=== PATIENT | male | born 1950 | race American Indian/Alaskan Native ===

== ENCOUNTER 2017-11-09 08:34 | Emergency (ER) | payer MEDICARE, OTHER ==
[2017-11-09 08:35] VITALS: PULSE 70
[2017-11-09 08:45] VITALS: BMI 25.0
[2017-11-09 08:47] VITALS: RESP 14; TEMP 98.5; O2SAT 100
--- NOTE | 2017-11-09 08:50 | ED PDOC ---
Arrival/HPI - General Time Seen by Provider: 11/09/17 08:45 Historian: Patient - History of Present Illness Narrative History of Present Illness (Text): 11/09/17 08:40 67 year old male, whose PMH includes gout, CABG, CHF, pacemaker, atrial fibrillation, and pacemaker, who presents to the emergency department complaining of right knee pain since last night. Patient reports pain radiates intermittently down to ankle and notes having to use a cane for ambulating assistance, which is not common for him. Additionally, he states having limited motion when bending his knee and has tried warm compressions with no significant relief. Patient denies trauma, falls, tingling or numbness, dizziness, shortness of breath, chest pain, abdominal pain, headache, or other complaints. Time/Duration: 24 hours Symptom Onset: Sudden Symptom Course: Unchanged Context: Home Past Medical History - Provider Review Nursing Documentation Reviewed: Yes - Infectious Disease Hx of Infectious Diseases: None - Tetanus Immunization Tetanus Immunization: Unknown - Cardiac Hx Cardiac Disorders: Yes Hx Cardiac Arrhythmia: Yes (Afib) Hx Congestive Heart Failure: Yes Hx Hypertension: Yes Hx Internal Defibrillator: Yes Hx Pacemaker: Yes (12/2015) Other/Comment: CABG 01/20/2016 - Pulmonary Hx Respiratory Disorders: No - Neurological Hx Neurological Disorder: No - HEENT Hx HEENT Disorder: Yes (wears glasses) - Renal Hx Renal Disorder: No - Endocrine/Metabolic Hx Endocrine Disorders: No - Hematological/Oncological Hx Blood Disorders: No - Integumentary Hx Dermatological Disorder: No - Musculoskeletal/Rheumatological Hx Musculoskeletal Disorders: No Hx Falls: No Hx Unsteady Gait: No - Gastrointestinal Hx Gastrointestinal Disorders: No - Genitourinary/Gynecological Hx Genitourinary Disorders: No - Psychiatric Hx Psychophysiologic Disorder: No Hx Emotional Abuse: No Hx Physical Abuse: No Hx Sexual Abuse: No Hx Substance Use: No - Surgical History Hx Cardiac Catheterization: Yes Hx Open Heart Surgery: Yes (CABG 12/2015`) Hx Valve Replacement: Yes (Recently 01/20/16) - Anesthesia Hx Anesthesia: Yes Hx Anesthesia Reactions: No Hx Malignant Hyperthermia: No - Suicidal Assessment Feels Threatened In Home Enviroment: No Family/Social History - Physician Review Nursing Documentation Reviewed: Yes Family/Social History: Unknown Family HX Smoking Status: Never Smoked Hx Alcohol Use: No Hx Substance Use: No Allergies/Home Meds Allergies/Adverse Reactions: Allergies No Known Allergies Allergy (Verified 11/09/17 08:45) Home Medications: Home Meds Medication Instructions Recorded Confirmed Aspirin [Adult Low Dose Aspirin EC] 81 mg PO DAILY 11/09/17 11/09/17 Atorvastatin [Lipitor] 40 mg PO HS 11/09/17 11/09/17 Carvedilol [Coreg] 9.375 mg PO BID 11/09/17 11/09/17 Everolimus [Zortress] 0.25 mg PO BID 11/09/17 11/09/17 Folic Acid [Folic Acid] 1 mg PO DAILY 11/09/17 11/09/17 Magnesium Oxide [Mag-Ox] 400 mg PO BID 11/09/17 11/09/17 Multivit-Min/Iron/Folic Acid/K 1 tab PO DAILY 11/09/17 11/09/17 [Adults Multivitamin Caplet] Pantoprazole Sodium [Protonix] 40 mg PO DAILY 11/09/17 11/09/17 Tacrolimus [Prograf] 5 mg PO Q12 11/09/17 11/09/17 amLODIPine [Norvasc] 10 mg PO DAILY 11/09/17 11/09/17 Review of Systems - Review of Systems Constitutional: absent: Fevers ENT: absent: Sinus Congestion Respiratory: absent: SOB Cardiovascular: absent: Chest Pain Gastrointestinal: absent: Abdominal Pain Genitourinary Male: absent: Dysuria Musculoskeletal: Other (right knee pain radiates down ankle) Skin: absent: Rash Neurological: absent: Headache Endocrine: absent: Diaphoresis Physical Exam Vital Signs Reviewed: Yes Vital Signs Temp Pulse Resp BP Pulse Ox 11/09/17 09:55 87 14 120/87 100 11/09/17 08:46 98.5 F 100 H 14 138/81 100 Temperature: Afebrile Blood Pressure: Normal Pulse: Tachycardic Respiratory Rate: Normal Appearance: Positive for: Well-Appearing, Non-Toxic, Comfortable Pain Distress: None Mental Status: Positive for: Alert and Oriented X 3 - Systems Exam Head: Present: Atraumatic, Normocephalic Pupils: Present: PERRL Extroacular Muscles: Present: EOMI Conjunctiva: Present: Normal Respiratory/Chest: Present: Clear to Auscultation, Good Air Exchange. No: Respiratory Distress, Accessory Muscle Use, Wheezes, Decreased Breath Sounds, Rales, Retracting, Rhonchi Cardiovascular: Present: Regular Rate and Rhythm, Normal S1, S2. No: Murmurs Lower Extremity: Present: NORMAL PULSES, Tenderness (tenderness on lateral right knee with limited ROM), Neurovascularly Intact, Capillary Refill < 2 s. No: Edema, Cyanosis, Normal ROM (limited ROM on right knee), Swelling, Erythema , Deformity Neurological: Present: GCS=15, CN II-XII Intact, Speech Normal Skin: Present: Warm, Dry, Normal Color. No: Rashes Psychiatric: Present: Alert, Oriented x 3, Normal Insight, Normal Concentration Medical Decision Making ED Course and Treatment: 11/09/17 Impression: 67 year old male with tenderness on lateral right knee and limited ROM complaining of right knee pain since last night. Plan: -- Right knee x-ray -- Toradol -- Reassess and disposition Progress Notes: 11/09/17 09:55 On reevaluation the patient's right knee x-ray was ready by me and detected no dislocation or fractures. Patient feels better and is in no acute distress. I have discussed the results and plan with the patient, who expresses understanding. Patient given the opportunity to ask question, all questions were answered and there is agreement with the plan to discharge the patient home. Patient is stable for discharge. Patient was instructed to follow up with physician/clinic in 1-2 days or return if symptoms persist/worsen or new concerning symptoms arise. - RAD Interpretation Radiology Orders: 11/09/17 08:45 KNEE RIGHT 2 VIEWS (AP & LAT) [RAD] Stat Promotional Model: Radiologist - Medication Orders Current Medication Orders: Discontinued Medications Ketorolac Tromethamine (Toradol) 60 mg IM STAT STA Stop: 11/09/17 08:46 Last Admin: 11/09/17 08:56 Dose: 60 mg MAR Pain Assessment Document 11/09/17 08:56 BRO (Rec: 11/09/17 08:56 BRO [id number]) Pain Reassessment Is this a pain reassessment? Yes Sleep Is patient sleeping during reassessment? No Presence of Pain Presence of Pain Yes Pain Scale Used Pain Scale Used Numeric Location Left, Right or Bilateral Right Pain Location Body Site Knee Leg Description Description Intermittent Intensity of Pain at present 4 IM Administration Charges Document 11/09/17 08:56 BRO (Rec: 11/09/17 08:56 BRO [id number]) Injection Site MAR Injection Site Left Gluteus Antoine Charges for Administration # of IM Administrations 1 - Scribe Statement The provider has reviewed the documentation as recorded by the Leland Cote Provider Paulaibe Attestation: All medical record entries made by the Scribe were at my direction and personally dictated by me. I have reviewed the chart and agree that the record accurately reflects my personal performance of the history, physical exam, medical decision making, and the department course for this patient. I have also personally directed, reviewed, and agree with the discharge instructions and disposition. Disposition/Present on Arrival - Present on Arrival Any Indicators Present on Arrival: No History of DVT/PE: No History of Uncontrolled Diabetes: No Urinary Catheter: No History Surgical Site Infection Following: None - Disposition Have Diagnosis and Disposition been Completed?: Yes Diagnosis: Right knee pain Disposition: HOME/ ROUTINE Disposition Time: 09:58 Condition: GOOD Discharge Instructions (ExitCare): Chronic Knee Pain (DC) Additional Instructions: GRANT MALHOTRA, thank you for letting us take care of you today. Your provider was Fani Jeffery MD and you were treated for PAIN (R) KNEE. The emergency medical care you received today was directed at your acute symptoms. If you were prescribed any medication, please fill it and take as directed. It may take several days for your symptoms to resolve. Return to the Emergency Department if your symptoms worsen, do not improve, or if you have any other problems. Please contact your doctor or call one of the physicians/clinics you have been referred to that are listed on the Patient Visit Information form that is included in your discharge packet. Bring any paperwork you were given at discharge with you along with any medications you are taking to your follow up visit. Our treatment cannot replace ongoing medical care by a primary care provider outside of the emergency department. Thank you for allowing the [facility] team to be part of your care today. If you had an X-Ray or CT scan: A Radiologist will review the ED reading if any change in treatment is needed we will contact you. If you had a blood, urine, or wound culture: It will take several days for the results, if any change in treatment is needed we will contact you. If you had an STI test: It will take 48 hours for the results. Please call after 1 week if you have not heard back. Referrals: Jc Corrigan MD [Primary Care Provider] - Follow up with primary Forms: [employer] (Albanian)
[2017-11-09 09:56] VITALS: PULSE 87
[2017-11-09 10:04] VITALS: BP 120/87
--- NOTE | 2017-11-09 10:18 | RAD ---
Date of service: 11/09/2017 PROCEDURE: Right Knee Radiographs. HISTORY: pain COMPARISON: 12/12/2013 FINDINGS: BONES: Normal. No fracture. JOINTS: Normal. No osteoarthritis. JOINT EFFUSION: Small effusion OTHER FINDINGS: None. IMPRESSION: No acute findings
== END 2017-11-09 10:03 | disposition home or self-care (01) ==
LOC: ED 08:34
DX: M25.561 Pain in right knee (principal); I48.91 Unspecified atrial fibrillation; I50.9 Heart failure, unspecified; Z95.0 Presence of cardiac pacemaker; I10 Essential (primary) hypertension
CPT/HCPCS: 73560; 96372; 99284; J1885

== ENCOUNTER 2017-11-10 08:57 | Emergency (ER) | payer MEDICARE ==
[2017-11-10 08:58] VITALS: PULSE 70; BMI 25.0
--- NOTE | 2017-11-10 09:21 | ED PDOC ---
Arrival/HPI - General Chief Complaint: Lower Extremity Problem/Injury Time Seen by Provider: 11/10/17 09:06 Historian: Patient - History of Present Illness Narrative History of Present Illness (Text): 11/10/17 09:18 67yo male with past medical history of gout, CABG, CHF, pacemaker, atrial fibrillation who present with complaint of right knee pain x 3days. Patient states pain started suddenly and he has been ambulating with a cane. Notes pain with full extension and with ambulation. States he was seen here yesterday and was discharged with Ibuprofen, but he did not take it today. He states he have appointment with Orthopedist on Sunday, but came to emergency department today for the pain. He denies trauma, calf pain, chest pain, SOB, diaphoresis, redness , any other complaint. Past Medical History - Provider Review Nursing Documentation Reviewed: Yes - Infectious Disease Hx of Infectious Diseases: None - Tetanus Immunization Tetanus Immunization: Unknown - Cardiac Hx Cardiac Disorders: Yes Hx Cardiac Arrhythmia: Yes (Afib) Hx Congestive Heart Failure: Yes Hx Hypertension: Yes Hx Internal Defibrillator: Yes Hx Pacemaker: Yes (12/2015) Other/Comment: CABG 01/20/2016 - Pulmonary Hx Respiratory Disorders: No - Neurological Hx Neurological Disorder: No - HEENT Hx HEENT Disorder: Yes (wears glasses) - Renal Hx Renal Disorder: No - Endocrine/Metabolic Hx Endocrine Disorders: No - Hematological/Oncological Hx Blood Disorders: No - Integumentary Hx Dermatological Disorder: No - Musculoskeletal/Rheumatological Hx Musculoskeletal Disorders: No Hx Falls: No Hx Unsteady Gait: No - Gastrointestinal Hx Gastrointestinal Disorders: No - Genitourinary/Gynecological Hx Genitourinary Disorders: No - Psychiatric Hx Psychophysiologic Disorder: No Hx Emotional Abuse: No Hx Physical Abuse: No Hx Sexual Abuse: No Hx Substance Use: No - Surgical History Hx Cardiac Catheterization: Yes Hx Open Heart Surgery: Yes (CABG 12/2015`) Hx Valve Replacement: Yes (Recently 01/20/16) - Anesthesia Hx Anesthesia: Yes Hx Anesthesia Reactions: No Hx Malignant Hyperthermia: No - Suicidal Assessment Feels Threatened In Home Enviroment: No Family/Social History - Physician Review Nursing Documentation Reviewed: Yes Family/Social History: Unknown Family HX Smoking Status: Never Smoked Hx Alcohol Use: No Hx Substance Use: No Allergies/Home Meds Allergies/Adverse Reactions: Allergies No Known Allergies Allergy (Verified 11/09/17 08:45) Home Medications: Home Meds Medication Instructions Recorded Confirmed Aspirin [Adult Low Dose Aspirin EC] 81 mg PO DAILY 11/09/17 11/10/17 Atorvastatin [Lipitor] 40 mg PO HS 11/09/17 11/10/17 Carvedilol [Coreg] 9.375 mg PO BID 11/09/17 11/10/17 Everolimus [Zortress] 0.25 mg PO BID 11/09/17 11/10/17 Folic Acid [Folic Acid] 1 mg PO DAILY 11/09/17 11/10/17 Magnesium Oxide [Mag-Ox] 400 mg PO BID 11/09/17 11/10/17 Multivit-Min/Iron/Folic Acid/K 1 tab PO DAILY 11/09/17 11/10/17 [Adults Multivitamin Caplet] Pantoprazole Sodium [Protonix] 40 mg PO DAILY 11/09/17 11/10/17 Tacrolimus [Prograf] 5 mg PO Q12 11/09/17 11/10/17 amLODIPine [Norvasc] 10 mg PO DAILY 11/09/17 11/10/17 Review of Systems - Physician Review All systems were reviewed & negative as marked: Yes - Review of Systems Constitutional: Normal Eyes: Normal ENT: Normal Respiratory: Normal Cardiovascular: Normal Gastrointestinal: Normal Genitourinary Male: Normal Musculoskeletal: Arthralgias (Right knee pain) Skin: Normal Neurological: Normal Endocrine: Normal Hemo/Lymphatic: Normal Psychiatric: Normal Physical Exam Vital Signs Reviewed: Yes Vital Signs Temp Pulse Resp BP Pulse Ox 11/10/17 09:58 98 F 88 20 116/53 L 100 11/10/17 09:42 98 F 75 19 116/59 L 99 11/10/17 09:11 98.2 F 96 H 18 117/78 96 Temperature: Afebrile Blood Pressure: Normal Pulse: Regular Respiratory Rate: Normal Appearance: Positive for: Well-Appearing, Non-Toxic, Comfortable Pain Distress: None Mental Status: Positive for: Alert and Oriented X 3 - Systems Exam Head: Present: Atraumatic, Normocephalic Pupils: Present: PERRL Extroacular Muscles: Present: EOMI Conjunctiva: Present: Normal Mouth: Present: Moist Mucous Membranes Neck: Present: Normal Range of Motion Respiratory/Chest: Present: Clear to Auscultation, Good Air Exchange. No: Respiratory Distress, Accessory Muscle Use Cardiovascular: Present: Regular Rate and Rhythm, Normal S1, S2. No: Murmurs Abdomen: No: Tenderness, Distention, Peritoneal Signs Back: Present: Normal Inspection Upper Extremity: Present: Normal Inspection. No: Cyanosis, Edema Lower Extremity: Present: NORMAL PULSES, Tenderness (Over the patellar), Neurovascularly Intact. No: Edema, CALF TENDERNESS, Normal ROM (Limited on extension secondary to pain), Swelling, Erythema, Deformity, Temperature Abnormalties Neurological: Present: GCS=15, CN II-XII Intact, Speech Normal Skin: Present: Warm, Dry, Normal Color. No: Rashes Psychiatric: Present: Alert, Oriented x 3, Normal Insight, Normal Concentration Medical Decision Making ED Course and Treatment: 11/10/17 18:24 PT presented for stated history. He was ambulatory with a cane in emergency department and neurologically intact. His records from yesterday was reviewed and Knee xray showed DJD without acute finding. Pt did not take the ibuprofen rx given to him yesterday. He was advised to take the Ibuprofen . He have appointment with Ortho on Sunday and was advised to keep his appointment. His pain was controlled in emergency department with medication. - Medication Orders Current Medication Orders: Discontinued Medications Ketorolac Tromethamine (Toradol) 60 mg IM STAT STA Stop: 11/10/17 09:17 Last Admin: 11/10/17 09:44 Dose: 60 mg Disposition/Present on Arrival - Present on Arrival Any Indicators Present on Arrival: No History of DVT/PE: No History of Uncontrolled Diabetes: No Urinary Catheter: No History of Decub. Ulcer: No History Surgical Site Infection Following: None - Disposition Have Diagnosis and Disposition been Completed?: Yes Diagnosis: Knee pain Disposition: HOME/ ROUTINE Disposition Time: :25 Patient Plan: Discharge Condition: STABLE Discharge Instructions (ExitCare): Knee Pain (DC) Additional Instructions: Follow up with orthopedist and take your medication as was directed Return to emergency department for any new or worsening symptoms Referrals: Wes Spain DO [Staff Provider] - Follow up with primary Forms: [employer] (Hungarian)
[2017-11-10 09:43] VITALS: TEMP 98
[2017-11-10 10:00] VITALS: BP 116/53; PULSE 88; RESP 20; O2SAT 100
== END 2017-11-10 09:58 | disposition home or self-care (01) ==
LOC: ED 08:57
DX: M25.561 Pain in right knee (principal); I48.91 Unspecified atrial fibrillation; I50.9 Heart failure, unspecified; Z95.0 Presence of cardiac pacemaker
CPT/HCPCS: 99284; J1885